=== PATIENT | female | born 1985 | race American Indian/Alaskan Native ===

== ENCOUNTER 2020-04-23 13:29 | Emergency (ER) | payer SELFPAY ==
[2020-04-23 13:45] VITALS: BP 117/78
--- NOTE | 2020-04-23 17:01 | Emergency Department Report ---
ED General Adult HPI - General Chief complaint: Dental/Oral Stated complaint: LT FACIAL PAIN Time Seen by Provider: 04/23/20 15:38 Source: patient Mode of arrival: Ambulatory Limitations: No Limitations - History of Present Illness Initial comments: 34-year-old -Citizen Of [place] female presents with complaints of left-sided facial/ear pain x4 days. Past medical history includes asthma. Rates her current pain as a 5.5 in severity and worsens with chewing. Has been using Tylenol 3 which alleviates the pain temporarily. Ibuprofen helps some. Does a dmit to decreased hearing in left ear. - Related Data Previous Rx's Medication Instructions Recorded Last Taken Type Furosemide [Lasix] 20 mg PO QDAY #30 tablet 11/15/14 Unknown Rx Prednisone [predniSONE 10 mg 10 mg PO .TAPER #1 tab.ds.pk 11/15/14 Unknown Rx (6-Day Pack, 21 Tabs)] Albuterol Mdi (or & Nicu Only) 2 puff IH Q4HR #1 inha 08/16/15 Unknown Rx [ProAir HFA Inhaler] Fluticasone/Salmeterol [Advair 1 puff IH BID #1 disk.w.dev 08/16/15 Unknown Rx Diskus 500-50 mcg] predniSONE [Deltasone] 20 mg PO QDAY #5 tab 08/16/15 Unknown Rx Amoxicillin/Potassium Clav 1 each PO BID 20 Days #20 tab 04/23/20 Unknown Rx [Augmentin 875-125 Tablet] Ibuprofen [Motrin 800 MG tab] 800 mg PO Q8HR PRN #20 tablet 04/23/20 Unknown Rx Allergies Allergy/AdvReac Type Severity Reaction Status Date / Time codeine Allergy Unknown Verified 11/15/14 18:03 ED Review of Systems ROS: Stated complaint: LT FACIAL PAIN Other details as noted in HPI Constitutional: denies: chills, diaphoresis, fever, malaise, weakness Respiratory: denies: shortness of breath Cardiovascular: denies: chest pain Gastrointestinal: denies: abdominal pain, nausea, vomiting Skin: denies: rash, lesions Neurological: denies: headache ED Past Medical Hx - Past Medical History Previous Medical History?: Yes Hx Asthma: Yes Additional medical history: lower extrem. edema (used to take diuretics, never followed up after ER visit) - Surgical History Past Surgical History?: Yes Additional Surgical History: partial hysterectomy - Social History Smoking Status: Light Tobacco Smoker Substance Use Type: Alcohol - Medications Home Medications: Home Medications Medication Instructions Recorded Confirmed Last Taken Type Furosemide [Lasix] 20 mg PO QDAY #30 tablet 11/15/14 Unknown Rx Prednisone [predniSONE 10 mg 10 mg PO .TAPER #1 tab.ds.pk 11/15/14 Unknown Rx (6-Day Pack, 21 Tabs)] Albuterol Mdi (or & Nicu Only) 2 puff IH Q4HR #1 inha 08/16/15 Unknown Rx [ProAir HFA Inhaler] Fluticasone/Salmeterol [Advair 1 puff IH BID #1 disk.w.dev 08/16/15 Unknown Rx Diskus 500-50 mcg] predniSONE [Deltasone] 20 mg PO QDAY #5 tab 08/16/15 Unknown Rx Amoxicillin/Potassium Clav 1 each PO BID 20 Days #20 tab 04/23/20 Unknown Rx [Augmentin 875-125 Tablet] Ibuprofen [Motrin 800 MG tab] 800 mg PO Q8HR PRN #20 tablet 04/23/20 Unknown Rx ED Physical Exam - General Limitations: No Limitations General appearance: alert, in no apparent distress - Head Head exam: Present: atraumatic, normocephalic - Eye Eye exam: Present: normal appearance. Absent: scleral icterus - ENT ENT exam: Present: mucous membranes moist - Expanded ENT Exam Expanded TM/Canal exam: Erythema: Left TM, Canal Tenderness: Left TM Mouth exam: Absent: drooling, trismus, muffled voice Teeth exam: Present: dental caries Throat exam: Positive: normal inspection - Neck Neck exam: Present: normal inspection - Respiratory Respiratory exam: Absent: respiratory distress - Cardiovascular Cardiovascular Exam: Present: regular rate - Neurological Exam Neurological exam: Present: alert, oriented X3, normal gait - Psychiatric Psychiatric exam: Present: normal affect, normal mood - Skin Skin exam: Present: warm, dry, intact, normal color. Absent: rash, cyanosis, di aphoretic ED Course Vital Signs 04/23/20 13:45 Temperature 98.0 F Pulse Rate 80 Respiratory 16 Rate Blood Pressure 117/78 [Right] O2 Sat by Pulse 96 Oximetry ED Medical Decision Making - Medical Decision Making 34-year-old -Citizen [place] female presents with complaints of left-sided facial/ear pain x4 days. Past medical history includes asthma. Rates her current pain as a 5.5 in severity and worsens with chewing. Has been using Tylenol 3 which alleviates the pain temporarily. Ibuprofen helps some. Does admit to decreased hearing in left ear. Left otitis media noted on exam. Will treat with Augmentin. Recommend follow- up with PCP in 3 to 5 days. She is afebrile nontachycardic and stable for discharge home. Strict return precautions were discussed in detail with patient who verbalized understanding Critical care attestation.: If time is entered above; I have spent that time in minutes in the direct care of this critically ill patient, excluding procedure time. ED Disposition Clinical Impression: Left otitis media Qualifiers: Otitis media type: other nonsuppurative Chronicity: acute Recurrence: non- recurrent Qualified Code(s): H65.192 - Other acute nonsuppurative otitis media, left ear Disposition: TO HOME OR SELFCARE Is pt being admited?: No Condition: Stable Instructions: Otitis Media, Adult Prescriptions: Amoxicillin/Potassium Clav [Augmentin 875-125 Tablet] 1 each PO BID 20 Days #20 tab Ibuprofen [Motrin 800 MG tab] 800 mg PO Q8HR PRN #20 tablet PRN Reason: pain Referrals: [facility] [Provider Group] - 3-5 Days
== END 2020-04-23 17:17 | disposition home or self-care (01) ==
LOC: ED 13:29
DX: H66.92 Otitis media, unspecified, left ear (principal); F17.200 Nicotine dependence, unspecified, uncomplicated; Z90.710 Acquired absence of both cervix and uterus; Z79.899 Other long term (current) drug therapy; Z88.6 Allergy status to analgesic agent
CPT/HCPCS: 99281

== ENCOUNTER 2020-07-01 11:05 | Emergency (ER) | payer SELFPAY ==
[2020-07-01 11:43] VITALS: BP 117/75
--- NOTE | 2020-07-01 12:28 | Emergency Department Report ---
ED Rash HPI - HPI Chief Complaint: Skin Rash Stated Complaint: RASH ALL OVER/ITCHY/PAINFUL Time Seen by Provider: 07/01/20 11:45 Duration: 2 Days Location: Head, Chest, Back, Abdomen Suspected Cause: Animal, Unknown Rash Symptoms: Yes Itching, Yes Blistering, No Facial Swelling, No Tongue/Oral Swelling, No Breathing Difficulties, No Choking Sensation, No Wheezing/Dyspnea, No Peeling, No Fever, No Lightheaded, No Malaise, No Myalgias Severity: moderate Other History: This 35-year-old female presents with rash generalized itching x2 days. Patient states 2 days ago she went to clients house with dogs and cats were present. Patient states that she noticed a rash shortly after leaving the home. Patient states rash are painful blistering and all of her her body, face and hair. She denies fever, chills, nausea vomiting. No difficulty breathing ED Review of Systems ROS: Stated complaint: RASH ALL OVER/ITCHY/PAINFUL Other details as noted in HPI Comment: All other systems reviewed and negative ED Past Medical Hx - Past Medical History Previous Medical History?: Yes Hx Asthma: Yes Additional medical history: lower extrem. edema (used to take diuretics, never followed up after ER visit) - Surgical History Past Surgical History?: Yes Additional Surgical History: partial hysterectomy - Social History Smoking Status: Never Smoker Substance Use Type: None - Medications Home Medications: Home Medications Medication Instructions Recorded Confirmed Last Taken Type Furosemide [Lasix] 20 mg PO QDAY #30 tablet 11/15/14 Unknown Rx Prednisone [predniSONE 10 mg 10 mg PO .TAPER #1 tab.ds.pk 11/15/14 Unknown Rx (6-Day Pack, 21 Tabs)] Albuterol Mdi (or & Nicu Only) 2 puff IH Q4HR #1 inha 08/16/15 Unknown Rx [ProAir HFA Inhaler] Fluticasone/Salmeterol [Advair 1 puff IH BID #1 disk.w.dev 08/16/15 Unknown Rx Diskus 500-50 mcg] Amoxicillin/Potassium Clav 1 each PO BID 20 Days #20 tab 04/23/20 Unknown Rx [Augmentin 875-125 Tablet] Ibuprofen [Motrin 800 MG tab] 800 mg PO Q8HR PRN #20 tablet 04/23/20 Unknown Rx Pramoxine HCl/Calamine [Calamine 1 applic TP DAILY #1 lotion 07/01/20 Unknown Rx Medicated Lotion] cephALEXin [Keflex] 500 mg PO Q12HR #14 cap 07/01/20 Unknown Rx predniSONE [Deltasone] 20 mg PO QDAY #5 tab 07/01/20 Unknown Rx Rash Exam - Exam General: Vital signs noted. No distress. Alert and acting appropriately. HEENT: No Periorbital Edema, No Conjuctival Injection, No Chemosis, No Perioral Edema, No Tongue Edema, No Uvular Edema, No Compromised Airway, No Drooling Lungs: Yes Good Air Exchange (Normal Breath Sounds), No Wheezes, No Ronchi, No Stridor, No Cough, No Labored Respirations, No Retractions, No Use of Accessory Muscles, No Other Abnormal Lung Sounds Heart: Yes Regular, No Murmur Skin: Yes Urticarial Rash, Yes Maculopapular Rash, Yes Tenderness, Yes Erythema, No Morbilliform rash, No Bulla(e), No Excoriations, No Weeping, No Edema, No Encrustations, No Other Other: Positive: Abdomen Normal, Neurologic Normal, Musculoskeletal Normal ED Course Vital Signs 07/01/20 11:42 Temperature 98.4 F Pulse Rate 83 Respiratory 16 Rate Blood Pressure 117/75 [Left] O2 Sat by Pulse 100 Oximetry ED Medical Decision Making - Medical Decision Making 35-year-old female presenting with unspecified rash. Discussed calamine lotion and Benadryl for itching. Vital signs are normal patient is in no acute distress. Plan is treat and follow-up with her primary care physician. If rash not resolved after 2 weeks, discuss follow-up with sr. media manager. Critical care attestation.: If time is entered above; I have spent that time in minutes in the direct care of this critically ill patient, excluding procedure time. ED Disposition Clinical Impression: Rash and nonspecific skin eruption Disposition: DC-01 TO HOME OR SELFCARE Is pt being admited?: No Does the pt Need Aspirin: No Condition: Stable Instructions: Rash, Adult Additional Instructions: Make sure to follow up with the primary care physician as discussed. Take all your medications as you've been prescribed. If you have any worsening symptoms or develop new symptoms please return to ED immediately. Prescriptions: Pramoxine HCl/Calamine [Calamine Medicated Lotion] 1 applic TP DAILY #1 lotion predniSONE [Deltasone] 20 mg PO QDAY #5 tab cephALEXin [Keflex] 500 mg PO Q12HR #14 cap Referrals: [facility] [Outside] - 3-5 Days [facility] [Outside] - 3-5 Days Forms: Accompanied Note, Work/School Release Form(ED) Time of Disposition: 12:28
== END 2020-07-01 13:31 | disposition home or self-care (01) ==
LOC: ED 11:05
DX: R21 Rash and other nonspecific skin eruption (principal); J45.909 Unspecified asthma, uncomplicated; Z90.710 Acquired absence of both cervix and uterus; Z79.899 Other long term (current) drug therapy
CPT/HCPCS: 99282